=== PATIENT | male | born 2000 | race Caucasian/White ===

== ENCOUNTER 2025-04-23 16:05 | Emergency (ER) | payer OTHER ==
[2025-04-23 16:32] VITALS: BP 125/73; PULSE 69; RESP 18; TEMP 99; BMI 29.0
== END 2025-04-23 18:08 | disposition home or self-care (01) ==
LOC: FER 16:05
DX: M25.571 Pain in right ankle and joints of right foot (principal); M79.671 Pain in right foot; Y35.891A Legal intervention involving other specified means, law enforcement official injured, initial encounter; Y93.02 Activity, running
CPT/HCPCS: 73610-TC-RT-FY; 73630-TC-RT-FY; 99283-25